=== PATIENT | male | born 1965 | race Caucasian/White ===

== ENCOUNTER 2017-01-21 20:46 | Emergency (ER) | payer OTHER, MEDICAID ==
[~2017-01-21] VITALS: Ht 170.2 cm; Wt 72.0 kg
[2017-01-21 20:48] VITALS: BP 131/87
[2017-01-21 21:43] LABS: ASPARTATE AMINO TRANSFERASE 105 U/L (15-37); BLOOD UREA NITROGEN 10 mg/dL (7-18)
[2017-01-21 21:59] LABS: HIV 1&2 ANTIBODY SCREEN Nonreactive (Nonreactive); HIV-1 p24 ANTIGEN Nonreactive (Nonreactive)
[2017-01-22 10:46] LABS: HEP B SURF. AB < 3.1 mIU/mL (0.0-10.0)
[2017-01-22 11:24] LABS: HEPATITIS C VIRUS ANTIBODY Reactive (Nonreactive)
== END 2017-01-21 21:58 | disposition home or self-care (01) ==
LOC: ED 21:52
DX: Z02.89 Encounter for other administrative examinations (principal)
CPT/HCPCS: 36415; 80053; 85025; 86703; 86705; 86706; 86803; 87340; 87521; 87899; 99284; G0435